=== PATIENT | male | born 1980 | race Caucasian/White ===

== ENCOUNTER 2017-01-07 17:06 | Emergency (ER) | payer BC, OTHER ==
--- NOTE | 2017-01-07 17:56 | EDM.PDOC ---
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 Patient caught between gate and cow for 5-7 seconds. Has soreness in kidney area but no other complaints. Walking. Denies pain in pelvis/chest. ROS negative for HEENT/Resp/CV/Neuro complaints. No shortness of breath. Has not urinated since incident. Movement and pressure over left flank area causes discomfort. Pain does not radiate. No abdominal pain. No limb complaints/ changes. Left Lower Flank Pain Score (Numeric/FACES): 3 - Related Data Allergies Allergy/AdvReac Type Severity Reaction Status Date / Time cat dander Allergy Other Verified 01/07/17 17:18 Home Meds: Home Meds . [No Known Home Meds] 01/07/17 [History] Past Medical History Gastrointestinal History: Reports: GERD Social & Family History - Tobacco Use Smoking Status *Q: Never Smoker Second Hand Smoke Exposure: No - Caffeine Use Caffeine Use: Reports: Coffee, Energy Drinks, Soda, Tea - Recreational Drug Use Recreational Drug Use: No ED ROS GENERAL - Review of Systems Review Of Systems: ROS reveals no pertinent complaints other than HPI. ED EXAM, GENERAL - Physical Exam Exam: See Below Exam Limited By: No Limitations General Appearance: Alert, WD/WN, No Apparent Distress Eye Exam: Bilateral Eye: EOMI, PERRL Ears: Normal External Exam, Normal Canal, Hearing Grossly Normal, Normal TMs Nose: Normal Inspection, No Blood Throat/Mouth: Normal Inspection, Normal Lips, Normal Voice, No Airway Compromise Head: Atraumatic, Normocephalic Neck: Supple, Non-Tender Respiratory/Chest: No Respiratory Distress, Lungs Clear, Normal Breath Sounds, No Accessory Muscle Use, Chest Non-Tender Cardiovascular: Normal Peripheral Pulses, Regular Rate, Rhythm, No Edema, No Murmur Peripheral Pulses: 2+: Radial (L), Radial (R) GI/Abdominal: Normal Bowel Sounds, Soft, Non-Tender, No Distention, Pelvis Stable (Male) Exam: Deferred Rectal (Males) Exam: Deferred Back Exam: CVA Tenderness (L), Other (Tender to palpation over left back musculature on left side, overall mild discomfort. Moreso in upper flank area, nontender in lower lumbar region. No tenderness at all around hips/pelvis. ). No: Decreased Range of Motion, Vertebral Tenderness Extremities: Normal Inspection, Normal Range of Motion, Non-Tender, No Pedal Edema, Normal Capillary Refill Neurological: Alert, Oriented, Normal Cognition, Normal Gait, No Motor/Sensory Deficits Psychiatric: Normal Affect, Normal Mood Skin Exam: Warm, Dry, Intact, Normal Color, No Rash. No: Ecchymosis, Erythema Course - Vital Signs Last Recorded V/S: Last Vital Signs Temp 36.8 C 01/07/17 17:07 Pulse 74 01/07/17 19:30 Resp 16 01/07/17 19:30 BP 155/84 H 01/07/17 19:30 Pulse Ox 100 01/07/17 19:30 - Orders/Labs/Meds Orders: Active Orders 24 hr Category Date Time Status Vital Signs [RC] Q30M Care 01/07/17 18:30 Active Abdomen Pelvis w Cont [CT] Stat Exams 01/07/17 18:08 Taken Saline Lock Insert [OM.PC] Stat Oth 01/07/17 18:21 Ordered Labs: Laboratory Tests 01/07/17 01/07/17 01/07/17 Range/Units 17:40 17:40 17:40 WBC 8.7 (4.0-10.2) K/uL RBC 4.85 (4.33-5.41) M/uL Hgb 14.0 (13.1-16.8) g/dL Hct 40.9 (39.0-49.0) % MCV 84.3 (84.0-98.0) fL MCH 28.9 (28.2-33.3) pg MCHC 34.2 (31.7-36.0) g/dL RDW 13.1 (11.2-14.1) % Plt Count 309 (150-350) K/uL Neut % (Auto) 55.8 (45.0-80.0) % Lymph % (Auto) 32.7 (10.0-50.0) % [place] % (Auto) 6.9 (2.0-14.0) % Eos % (Auto) 4.3 (0.0-5.0) % Baso % (Auto) 0.3 (0.0-2.0) % Neut # (Auto) 4.85 (1.40-7.00) K/uL Lymph # (Auto) 2.84 (0.50-3.50) K/uL [place] # (Auto) 0.60 (0.00-1.00) K/uL Eos # (Auto) 0.37 (0.00-0.50) K/uL Baso # (Auto) 0.03 (0.00-0.20) K/uL Sodium 141 (136-145) mmol/L Potassium 4.2 (3.5-5.1) mmol/L Chloride 104 (98-107) mmol/L Carbon Dioxide 28.8 (21.0-32.0) mmol/L BUN 21 H (7-18) mg/dL Creatinine 1.28 H (0.51-1.17) mg/dL Est Cr Clr Drug Dosing 80.55 mL/min Estimated GFR (MDRD) > 60 mL/min Glucose 124 H (74-106) mg/dL Calcium 8.7 (8.5-10.1) mg/dL Total Bilirubin 0.2 (0.2-1.0) mg/dL AST 46 H (15-37) U/L ALT 74 (12-78) U/L Alkaline Phosphatase 95 (46-116) IU/L Creatine Kinase 318 H (26-308) U/L Total Protein 7.8 (6.4-8.2) g/dL Albumin 4.2 (3.4-5.0) g/dL Specimen Type Urine Color Urine Appearance Urine pH (5.0-9.0) Ur Specific [place] (1.005-1.030) Urine Protein (NEGATIVE) mg/dL Urine Glucose (UA) (NEGATIVE) mg/dL Urine Ketones (NEGATIVE) mg/dL Urine Occult Blood (NEGATIVE) Urine Nitrite (NEGATIVE) Urine Bilirubin (NEGATIVE) Urine Urobilinogen (0.2-1.0) E.U./dL Ur Leukocyte Esterase (NEGATIVE) Urine RBC /HPF Urine WBC /HPF Ur Epithelial Cells /LPF Urine Bacteria (NONE TO FEW) /HPF 01/07/17 Range/Units 18:10 WBC (4.0-10.2) K/uL RBC (4.33-5.41) M/uL Hgb (13.1-16.8) g/dL Hct (39.0-49.0) % MCV (84.0-98.0) fL MCH (28.2-33.3) pg MCHC (31.7-36.0) g/dL RDW (11.2-14.1) % Plt Count (150-350) K/uL Neut % (Auto) (45.0-80.0) % Lymph % (Auto) (10.0-50.0) % [place] % (Auto) (2.0-14.0) % Eos % (Auto) (0.0-5.0) % Baso % (Auto) (0.0-2.0) % Neut # (Auto) (1.40-7.00) K/uL Lymph # (Auto) (0.50-3.50) K/uL [place] # (Auto) (0.00-1.00) K/uL Eos # (Auto) (0.00-0.50) K/uL Baso # (Auto) (0.00-0.20) K/uL Sodium (136-145) mmol/L Potassium (3.5-5.1) mmol/L Chloride (98-107) mmol/L Carbon Dioxide (21.0-32.0) mmol/L BUN (7-18) mg/dL Creatinine (0.51-1.17) mg/dL Est Cr Clr Drug Dosing mL/min Estimated GFR (MDRD) mL/min Glucose (74-106) mg/dL Calcium (8.5-10.1) mg/dL Total Bilirubin (0.2-1.0) mg/dL AST (15-37) U/L ALT (12-78) U/L Alkaline Phosphatase (46-116) IU/L Creatine Kinase (26-308) U/L Total Protein (6.4-8.2) g/dL Albumin (3.4-5.0) g/dL Specimen Type Urinmid Urine Color Yellow Urine Appearance Clear Urine pH 6.0 (5.0-9.0) Ur Specific [place] 1.010 (1.005-1.030) Urine Protein Negative (NEGATIVE) mg/dL Urine Glucose (UA) Negative (NEGATIVE) mg/dL Urine Ketones Negative (NEGATIVE) mg/dL Urine Occult Blood Negative (NEGATIVE) Urine Nitrite Negative (NEGATIVE) Urine Bilirubin Negative (NEGATIVE) Urine Urobilinogen 0.2 (0.2-1.0) E.U./dL Ur Leukocyte Esterase Negative (NEGATIVE) Urine RBC 0-5 /HPF Urine WBC 0-5 /HPF Ur Epithelial Cells Occasional /LPF Urine Bacteria Rare (NONE TO FEW) /HPF Meds: Medications Discontinued Medications Generic Name Dose Route Start Last Admin Trade Name Freq PRN Reason Stop Dose Admin Sodium Chloride 1,000 mls @ 999 mls/hr 01/07/17 18:20 01/07/17 18:24 Normal Saline IV 01/07/17 19:20 999 mls/hr .BOLUS ONE Administration Iopamidol 100 ml 01/07/17 18:35 01/07/17 18:36 Isovue-300 (61%) IVPUSH 01/07/17 18:36 100 ml ONETIME ONE Administration Sodium Chloride 10 ml 01/07/17 18:21 Saline Flush FLUSH ASDIRECTED PRN Keep Vein Open - Re-Assessments/Exams Free Text/Narrative Re-Assessment/Exam: 01/07/17 21:50 Patient very concerned about having a kidney injury and had preference of CT study to evaluate flank discomfort. CT of abd/pelvis ordered. Unremarkable per Radiology. Patient declined pain medications while in ER. Noted to be moving around reasonably well. No obvious discomfort. BP noted to be elevated. Patient blamed it on "white coat syndrome" and stress of having to come to ER. BP did improve overall while patient in ER. Labs overall unremarkable except for mild elevation BUN and Cr. Suspect mild dehydration as patient was working long hours outside today (hot and humid). IV NS bolus given in ER. CK and AST just above normal limits. Once CT cleared, patient rechecked and was doing well and wished to go home. Numerous precautions discussed prior to discharge. He is to follow up as needed if new problems develop. Recommended recheck of labs with primary provider within a month. Departure - Departure Time of Disposition: 19:34 Disposition: Home, Self-Care 01 Condition: Good Clinical Impression: Contusion Qualifiers: Encounter type: initial encounter Contusion area: lower back Qualified Code(s) : S30.0XXA - Contusion of lower back and pelvis, initial encounter - Discharge Information Instructions: Contusion, [id number] Referrals: Romina Phillips PA [Primary Care Provider] - Forms: ED Department Discharge Additional Instructions: Ice affected area for comfort. OK to take Ibuprofen, Aleve or Tylenol to help with pain. Follow up if you have any worsening or new symptoms over the next few days. Follow up otherwise as needed. - My Orders Last 24 Hours: My Active Orders 01/07/17 18:08 Abdomen Pelvis w Cont [CT] Stat 01/07/17 18:21 Saline Lock Insert [OM.PC] Stat 01/07/17 18:30 Vital Signs [RC] Q30M - Assessment/Plan Last 24 Hours: My Active Orders 01/07/17 18:08 Abdomen Pelvis w Cont [CT] Stat 01/07/17 18:21 Saline Lock Insert [OM.PC] Stat 01/07/17 18:30 Vital Signs [RC] Q30M
[2017-01-07 18:18] LABS: CHLORIDE,CL 104 mmol/L (98-107); SODIUM,NA 141 mmol/L (136-145)
[2017-01-07] MEDS ORDERED: Sodium Chloride 0.9% 1,000 ML IV ONE (18:20)
[2017-01-07] MEDS ORDERED: Sodium Chloride 0.9% 10 ML Syringe FLUSH PRN (18:21)
[2017-01-07] MEDS ORDERED: Iopamidol 612 MG/ML 100 ML Bottle IVPUSH ONE (18:35)
[2017-01-07 19:55] VITALS: BP 155/84
== END 2017-01-07 19:45 | disposition home or self-care (01) ==
LOC: LL.ED 17:06
DX: S30.0XXA Contusion of lower back and pelvis, initial encounter (principal); K21.9 Gastro-esophageal reflux disease without esophagitis; Z91.048 Other nonmedicinal substance allergy status; W23.0XXA Caught, crushed, jammed, or pinched between moving objects, initial encounter
CPT/HCPCS: 36415; 74177; 80053; 81001; 82550; 85025; 96360; 99285; J7030; Q9967

== ENCOUNTER 2018-07-21 20:22 | Emergency (ER) | payer OTHER ==
[2018-07-21] MEDS ORDERED: Morphine 10 MG/ML Syringe IVPUSH ONE (21:09)
[2018-07-21] MEDS ORDERED: Sodium Chloride 0.9% 10 ML Syringe FLUSH PRN (21:09)
[2018-07-21] MEDS ORDERED: Ondansetron 4 MG/2 ML SDV IVPUSH ONE (21:09)
--- NOTE | 2018-07-21 21:22 | EDM.PDOC ---
ED HPI GENERAL MEDICAL PROBLEM - General Chief Complaint: Upper Extremity Injury/Pain Stated Complaint: partial finger amputation Time Seen by Provider: 07/21/18 20:50 Source of Information: Reports: Patient History Limitations: Reports: No Limitations - History of Present Illness INITIAL COMMENTS - FREE TEXT/NARRATIVE: Patient comes to ER with trauma complaint involving right index finger. 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 No other trauma complaint. - Related Data Allergies Allergy/AdvReac Type Severity Reaction Status Date / Time cat dander Allergy Other Verified 07/21/18 20:57 Home Meds: Home Meds Omeprazole 1 cap PO DAILY 07/21/18 [History] Past Medical History HEENT History: Reports: Other (See Below) Other HEENT History: frequent tonsilitis Gastrointestinal History: Reports: GERD - Past Surgical History HEENT Surgical History: Reports: Oral Surgery Social & Family History - Caffeine Use Caffeine Use: Reports: Coffee, Energy Drinks, Soda, Tea Review of Systems - Review of Systems Review Of Systems: ROS reveals no pertinent complaints other than HPI. ED EXAM, GENERAL - Physical Exam Exam: See Below Exam Limited By: No Limitations General Appearance: Alert, WD/WN, Anxious (mild), Mild Distress Eye Exam: Bilateral Eye: EOMI, PERRL Throat/Mouth: Normal Lips, Normal Voice, No Airway Compromise Head: Atraumatic, Normocephalic Neck: Supple Respiratory/Chest: No Respiratory Distress Cardiovascular: Regular Rate, Rhythm Extremities: Other (Partial amputation of distal portion right index finger noted starting at DIP, longitudinal in orientation. Minimal bleeding noted. ) Neurological: Alert, Oriented, Normal Cognition, Normal Gait Psychiatric: Normal Affect, Normal Mood Skin Exam: Warm, Dry Course - Orders/Labs/Meds Orders: Active Orders 24 hr Category Date Time Status Vaccines to be Administered [RC] PER UNIT ROUTINE Care 07/21/18 21:32 Active Fingers Second Digit Rt F6 [CR] Stat Exams 07/21/18 20:46 Ordered Sodium Chloride 0.9% [Saline Flush] Med 07/21/18 21:09 Active 10 ml FLUSH ASDIRECTED PRN Saline Lock Insert [OM.PC] Routine Oth 07/21/18 21:09 Ordered Medication Orders Sodium Chloride (Saline Flush) 10 ml FLUSH ASDIRECTED PRN PRN Reason: Keep Vein Open Meds: Medications Generic Name Dose Route Start Last Admin Trade Name Freq PRN Reason Stop Dose Admin Sodium Chloride 10 ml 07/21/18 21:09 Saline Flush FLUSH ASDIRECTED PRN Keep Vein Open Discontinued Medications Generic Name Dose Route Start Last Admin Trade Name Franca PRN Reason Stop Dose Admin Cefazolin Sodium 1 gm 07/21/18 21:10 Ancef IVPUSH 07/21/18 21:11 ONETIME ONE Diphtheria/Tetanus/Acell Pertussis 0.5 ml 07/21/18 21:31 07/21/18 21:55 Adacel IM 07/21/18 21:32 0.5 ml .ONCE ONE Administration Morphine Sulfate 5 mg 07/21/18 21:09 07/21/18 21:23 Morphine IVPUSH 07/21/18 21:10 5 mg ONETIME ONE Administration Ondansetron HCl 4 mg 07/21/18 21:09 07/21/18 21:23 Zofran IVPUSH 07/21/18 21:10 4 mg ONETIME ONE Administration - Radiology Interpretation Free Text/Narrative:: Xray confirmed small fracture involvement of distal phalanx. - Re-Assessments/Exams Free Text/Narrative Re-Assessment/Exam: 07/21/18 22:01 Patient and had avulsed tissue in their possession. This was placed in saline-moistened gauze, bagged, then placed in a larger bag with ice and saline. Call placed to , on-call Ortho hand specialist at [facility] in [place]. Transfer of patient arranged. Patient will travel by private vehicle to [facility] to have repair of injury performed tonight. Tetanus updated. IV Zofran and MS given. Antibiotics will be given once patient is at [facility]. Finger wrapped/bandaged prior to transfer. Departure - Departure Time of Disposition: 21:49 Disposition: DC/Tfer to Acute Hospital 02 Condition: Good Clinical Impression: Finger near amputation, right - Discharge Information *PRESCRIPTION DRUG MONITORING PROGRAM REVIEWED*: Not Applicable *COPY OF PRESCRIPTION DRUG MONITORING REPORT IN PATIENT [place]: Not Applicable Referrals: PCP,Unknown [Primary Care Provider] - Forms: ED Department Discharge Additional Instructions: Drive directly to [facility] in [place]. Do not eat or drink anything prior to arrival. Go to the ER and tell them who you are. from Orthopedics is expecting you. The ER will call him when you arrive and he will come and see you there. - My Orders Last 24 Hours: My Active Orders 07/21/18 20:46 Fingers Second Digit Rt F6 [CR] Stat 07/21/18 21:09 Sodium Chloride 0.9% [Saline Flush] 10 ml FLUSH ASDIRECTED PRN Saline Lock Insert [OM.PC] Routine 07/21/18 21:32 Vaccines to be Administered [RC] PER UNIT ROUTINE - Assessment/Plan Last 24 Hours: My Active Orders 07/21/18 20:46 Fingers Second Digit Rt F6 [CR] Stat 07/21/18 21:09 Sodium Chloride 0.9% [Saline Flush] 10 ml FLUSH ASDIRECTED PRN Saline Lock Insert [OM.PC] Routine 07/21/18 21:32 Vaccines to be Administered [RC] PER UNIT ROUTINE
[2018-07-21] MEDS: ceFAZolin 1 GM Vial IVPUSH ONE ×2 (21:23→23:55)
[2018-07-21] MEDS ORDERED: Diphtheria,Pertussis(Acell),Tetanus Vaccine 0.5 ML SDV IM ONE (21:31)
[2018-07-21 23:55] VITALS: BP 159/91
== END 2018-07-21 22:20 ==
LOC: LL.ED 20:22
DX: S68.620A Partial traumatic transphalangeal amputation of right index finger, initial encounter (principal); K21.9 Gastro-esophageal reflux disease without esophagitis; Z23 Encounter for immunization; Z91.048 Other nonmedicinal substance allergy status; Z79.899 Other long term (current) drug therapy; W23.0XXA Caught, crushed, jammed, or pinched between moving objects, initial encounter
CPT/HCPCS: 73140-F6; 90471; 90715; 96374; 96375; 99283; J0690; J2270; J2405